=== PATIENT | female | born 1960 | race Hispanic/Latino ===

== ENCOUNTER 2018-03-29 19:16 | Emergency (ER) | payer OTHER ==
[2018-03-29 19:20] VITALS: BMI 33.3
[2018-03-29 19:30] VITALS: RESP 18
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
[2018-03-29 21:42] VITALS: O2SAT 100
[2018-03-29 21:44] VITALS: BP 138/89; PULSE 87; TEMP 98.3
--- NOTE | 2018-03-30 08:15 | CT ---
Date of service: 03/29/2018 PROCEDURE: CT HEAD WITHOUT CONTRAST. HISTORY: r/o ICH and fx COMPARISON: None available. TECHNIQUE: Axial computed tomography images were obtained through the head/brain without intravenous contrast. Radiation dose: Total exam DLP = 823 mGy-cm. This CT exam was performed using one or more of the following dose reduction techniques: Automated exposure control, adjustment of the mA and/or kV according to patient size, and/or use of iterative reconstruction technique. FINDINGS: HEMORRHAGE: No intracranial hemorrhage. BRAIN: No mass effect or edema. Mild chronic microvascular changes. VENTRICLES: Unremarkable. No hydrocephalus. CALVARIUM: Unremarkable. PARANASAL SINUSES: Unremarkable as visualized. No significant inflammatory changes. MASTOID AIR CELLS: Unremarkable as visualized. No inflammatory changes. OTHER FINDINGS: The report concurs with the preliminary [facility] report IMPRESSION: No acute findings
--- NOTE | 2018-03-30 09:29 | RAD ---
Date of service: 03/29/2018 PROCEDURE: Radiographs of the left elbow. HISTORY: r/o fx COMPARISON: No prior. FINDINGS: BONES: Normal. No fracture. JOINTS: Normal. No osteoarthritis. SOFT TISSUES: Normal. JOINT EFFUSION: None. OTHER FINDINGS: None IMPRESSION: Unremarkable radiographs of the left elbow.
--- NOTE | 2018-03-30 09:34 | RAD ---
PROCEDURE: Left Hip X-ray Radiographs. HISTORY: r/o fx COMPARISON: None. FINDINGS: BONES: Normal. No fracture. JOINTS: Normal. SOFT TISSUES: Normal. OTHER FINDINGS: None. IMPRESSION: Normal left hip radiographs.
== END 2018-03-29 21:44 | disposition home or self-care (01) ==
LOC: MERGE 19:16 → ED 19:16
DX: M79.1 Myalgia (principal); I10 Essential (primary) hypertension